=== PATIENT | male | born 1985 | race Caucasian/White ===

== ENCOUNTER 2017-09-09 12:24 | Emergency (ER) | payer MEDICAID, OTHER ==
[~2017-09-09] VITALS: Ht 182.9 cm; Wt 97.5 kg
--- OUTSIDE RECORDS SUMMARY | 2017-09-09 12:31 | XMS REPORT ---
Author Author RACHELLE COOMBS Organization [employer] Address Unknown Phone Unavailable Care Team Providers Care Etl Bi Developer Name Role Phone RACHELLE COOMBS CP Unavailable Allergies No Known Allergies Problems Problem Type Condition Code Onset Dates Condition Status Problem Epistaxis 784.7 Active Problem Need for prophylactic vaccination and inoculation, Influenza V04.81 Active Problem Allergic rhinitis, cause unspecified 477.9 Active Problem Acute upper respiratory infections of unspecified site 465.9 Active Problem Screening examination for venereal disease V74.5 Active Medications Medication Code System Code Instructions Start Date End Date Status Dosage Azithromycin [facility] [id number] 500 MG Orally one time Feb 27, 2015 2 tablets Results No Known Results Summary Purpose [employer] Submission
--- OUTSIDE RECORDS SUMMARY | 2017-09-09 12:31 | XMS REPORT ---
Author Author JIMMIE BRITTON [facility] Address [address] [place] [address] Care Team Providers Care Trolley Car Operator Name Role Phone JIMMIE BRITTON Unavailable PROBLEMS Type Condition ICD9-CM Code SAZ11-DQ Code Onset Dates Condition Status SNOMED Code Problem Back pain of lumbar region with sciatica M54.40 Active 857803618 Problem Acute left-sided low back pain with left-sided sciatica M54.42 Active 307525469 Problem Other seasonal allergic rhinitis J30.2 Active 888057494 Problem Allergic rhinitis, cause unspecified 477.9 Active 04236955 ALLERGIES No Known Allergies ENCOUNTERS Encounter Location Date Diagnosis [facility] [id number] [place] [id number] Dec, Back pain of lumbar region with sciatica M54.40 [facility] [address] [id number] [place] [id number] Oct, Acute left-sided low back pain with left-sided sciatica M54.42 [facility] [address] [id number] [place] [id number] July, [facility] [address] [id number] [place] [id number] July, Other seasonal allergic rhinitis J30.2 [facility] [address] [id number] [place] [id number] Feb, [place] [id number] [facility] [address] [id number] [place] [phone] Aug, Dental examination V72.2 [facility] [address], [place] [address] Jun, [facility] [address] [address] Jun, [facility] [id number] [id number] Feb, [facility] [address], [place] [address] Feb, [facility] [id number] [place] [id number] July, [facility] [address], [place] [address] July, [facility] [id number] [place] [id number] Jun, [facility] [address] [id number] [address] Jun, [facility] [id number] [place] [id number] Dec, [facility] [address], [place] [address] Dec, [facility] [id number] [place] [phone] July, [facility] [id number] [place] [phone] July, IMMUNIZATIONS No Known Immunizations SOCIAL HISTORY Never Assessed REASON FOR VISIT Pain Damian FLORES PLAN OF CARE Activity Details Follow Up prn Reason:no improvement VITAL SIGNS Height 61 in 2016-11-16 Weight 213.0 lbs 2016-11-16 Temperature 98.8 degrees Fahrenheit 2016-11-16 Heart Rate 92 bpm 2016-11-16 Respiratory Rate 18 2016-11-16 BMI 40.24 kg/m2 2016-11-16 Blood pressure systolic 118 mmHg 2016-11-16 Blood pressure diastolic 78 mmHg 2016-11-16 MEDICATIONS Medication Instructions Dosage Frequency Start Date End Date Duration Status Gabapentin 300 MG Orally Three times a day 1 capsule 1 tab qhs x 5 d then bid x 5 d then tid 8h Oct, 30 day(s) Active Ibuprofen 800 MG Orally Three times a day 1 tablet with food or milk 8h Oct, Nov, 30 day(s) Active Medrol (Quinn) 4 MG as directed Oct, Active RESULTS No Results PROCEDURES No Known procedures INSTRUCTIONS MEDICATIONS ADMINISTERED No Known Medications MEDICAL (GENERAL) HISTORY Type Description Date Medical History seasonal allergies
--- OUTSIDE RECORDS SUMMARY | 2017-09-09 12:31 | XMS REPORT | Continuity of Care Document ---
Author Author [facility] Address Unknown Phone Unavailable Allergies There is no data. Medications There is no data. Problems Date Dx Coded Attending Type Code Diagnosis Diagnosed By 08/26/2011 JIMMIE BRITTON APRN V74.5 SCREENING EXAMINATION FOR VENEREAL DISEASE 08/26/2011 HENRIETTA MEYERS DO V74.5 SCREENING EXAMINATION FOR VENEREAL DISEASE 08/26/2011 HENRIETTA MEYERS DO V74.5 SCREENING EXAMINATION FOR VENEREAL DISEASE 08/26/2011 HENRIETTA MEYERS DO V74.5 SCREENING EXAMINATION FOR VENEREAL DISEASE 01/23/2013 JIMMIE BRITTON APRN V04.81 FLU SHOT 01/23/2013 HENRIETTA MEYERS DO V04.81 FLU SHOT 01/23/2013 HENRIETTA MEYERS DO V04.81 FLU SHOT 01/23/2013 HENRIETTA MEYERS DO V04.81 FLU SHOT 07/18/2013 HENRIETTA MEYERS DO 784.7 EPISTAXIS 07/18/2013 HENRIETTA MEYERS DO 784.7 EPISTAXIS 07/18/2013 HENRIETTA MEYERS DO 784.7 EPISTAXIS 08/14/2013 HENRIETTA MEYERS DO 477.9 RHINITIS 08/14/2013 HENRIETTA MEYERS DO 477.9 RHINITIS 03/26/2014 HENRIETTA MEYERS DO 465.9 ACUTE UPPER RESPIRATORY INFECTIONS OF UNSPECIFIED SITE Procedures Code [place] [address] INFLUENZA A & B (IN-HOUSE) 03/26/2014 77296 STREP A (IN-HOUSE) 03/26/2014 Results There is no data. Encounters ACCT No. Visit Date/Time Discharge Status Pt. Type Provider Facility Loc./Unit Complaint [id number] 03/26/2014 14:35:00 03/26/2014 23:59:59 CLS Outpatient HENRIETTA MEYERS DO [id number] 08/14/2013 14:16:00 08/14/2013 23:59:59 CLS Outpatient HENRIETTA MEYERS DO [id number] 07/18/2013 10:47:00 07/18/2013 23:59:59 CLS Outpatient HENRIETTA MEYERS DO [id number] 01/23/2013 18:47:00 01/23/2013 23:59:59 CLS Outpatient JIMMIE BRITTON APRN [id number] 01/22/2017 15:20:00 01/22/2017 23:59:59 CLS Outpatient DIANE COVINGTON [facility]
[2017-09-09] MEDS ORDERED: TETANUS,DIPTH,PERTUSS P/F (BOOSTRIX) 0.5 ML VIAL IM ONE (12:45)
--- NOTE | 2017-09-09 13:11 | ED Upper Extremity ---
General Chief Complaint: Upper Extremity Stated Complaint: LEFT FINGER LAC Nursing Triage Note: STATES HE BROUGHT GIRLFRIEND TO THE ER AND WHILE IN CAR HE CUT HIS LEFT INDEX FINGER WHILE SHARPENING HIS KNIFE IN THE PARKING LOT. Nursing Sepsis Screen: No Definite Risk History of Present Illness Date Seen by Provider: Sep 09, 2017 Time Seen by Provider: 12:50 Initial Comments 31 year old male reports self inflicted, accidental laceration to his left index finger. He was using his pocket knife for something else and cut his finger. He is unaware of his last tetanus status, we will give him a tetanus booster. Onset: just prior to arrival Pain/Injury Location: left 2nd finger Method of Injury: incised Allergies and Home Medications Allergies Coded Allergies: No Known Drug Allergies (Unverified , 09/09/17) Patient Home Medication List Home Medication List Reviewed: Yes Constitutional: no symptoms reported Skin: see HPI, other (superficial abrasion) All Other Systems Reviewed Negative Unless Noted: Yes Past Dknbnpn-Pytopg-Fvtlyg Hx Past Med/Social Hx: Reviewed Nursing Past Med/Soc Hx Patient Social History Alcohol Use: Rarely Uses Recreational Drug Use: No Smoking Status: Never a Smoker Recent Foreign Travel: No Contact w/Someone Who Travel: No Recent Infectious Disease Expo: No Recent Hopitalizations: No Immunizations Up To Date Tetanus Booster (TDap): Unknown Past Medical History Surgeries: No Respiratory: No Cardiac: No Neurological: No Genitourinary: No Gastrointestinal: No Musculoskeletal: No Endocrine: No HEENT: No Cancer: No Psychosocial: No Integumentary: No Physical Exam Vital Signs Vital Signs - First Documented 09/09/17 12:30 Temp 98.0 Pulse 78 Resp 15 B/P (MAP) 164/97 (119) Pulse Ox 97 O2 Delivery Room Air Capillary Refill : Less Than 3 Seconds General Appearance: WD/WN, no apparent distress Cardiovascular: normal peripheral pulses, regular rate, rhythm Respiratory: chest non-tender, lungs clear, normal breath sounds Hand: normal ROM, Left, abrasions (distal phalanx volar side left index finger , no active bleeding, wound well approximated and superficial.) Neurologic/Psychiatric: no motor/sensory deficits, alert, normal mood/affect, oriented x 3 Progress/Results/Core Measures Results/Orders Medications Given in ED Current Medications Medications Dose Ordered Sig/Sarah Route Start Time Stop Time Status Last Admin Dose Admin Diphtheria/ Tetanus/Acell Pertussis 0.5 ml ONCE ONCE IM 09/09/17 12:45 09/09/17 12:46 DC 09/09/17 13:34 0.5 ML Vital Signs/I&O 09/09/17 09/09/17 12:30 13:35 Temp 98.0 98.0 Pulse 78 78 Resp 15 15 B/P (MAP) 164/97 (119) 164/97 (119) Pulse Ox 97 97 O2 Delivery Room Air Blood Pressure Mean: 119 Progress Progress Note : Time: 12:50 Progress Note Initial evaluation completed, wound cleansed and triple antibiotic ointment with sterile nonadherent dressing applied. Discharge instructions and return precautions reviewed with the patient. Departure Impression Primary Impression: Abrasion of left index finger, initial encounter Disposition: 01 HOME, SELF-CARE Condition: Improved Departure-Patient Inst. Decision time for Depature: 13:10 Referrals: NO,LOCAL PHYSICIAN (PCP/Family) Primary Care Physician Patient Instructions: Wound Care (DC) Add. Discharge Instructions: Keep wound clean and dry for the next 24 hours. You may shower as normal after that, do not immerse left index finger in a sink of water, bathtub, swimming pool, hot tub, jose or pond. Keep covered with Band-Aid and apply triple antibiotic ointment 3 times daily. Follow-up with your primary care provider if symptoms are not improving or worsen. Return to emergency department for new, urgent health care problems. All discharge instructions reviewed with patient and/or family. Voiced understanding. ROLANDO HAJI Sep 09, 2017 13:11
[2017-09-09 13:35] VITALS: BP 164/97
== END 2017-09-09 13:35 | disposition home or self-care (01) ==
LOC: ER 12:28
DX: S60.411A Abrasion of left index finger, initial encounter (principal); W26.0XXA Contact with knife, initial encounter; Y92.481 Parking lot as the place of occurrence of the external cause
CPT/HCPCS: 90471; 90715; 99284

== ENCOUNTER 2017-12-09 12:12 | Emergency (ER) | payer MEDICAID ==
[~2017-12-09] VITALS: Ht 182.9 cm; Wt 102.1 kg
[2017-12-09] MEDS ORDERED: FEXO1TAB40 PO (13:34)
[2017-12-09] MEDS ORDERED: AMOX-358 PO (13:34)
--- NOTE | 2017-12-09 13:34 | ED EENT ---
History of Present Illness General Chief Complaint: Cough/Cold/Flu Symptoms Stated Complaint: SINUS INFECTION Nursing Triage Note: Pt reports cough, congestion, body aches, diarrhea, sore throat, since last week, but worse since yesterday. Pt was seen by his provider last week and prescribed zyrtec and flonase w/ no relief. 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 Source: patient Exam Limitations: no limitations History of Present Illness Date Seen by Provider: Dec 09, 2017 Time Seen by Provider: 13:31 Initial Comments To ER with 2 week history of nasal congestion, rhinorrhea, watery eyes, sneezing , diffuse body aches, nonproductive cough. He was seen by primary care last week and given Zyrtec Flonase and oral steroids. He did not finish the steroids. He reports chills and fevers at home. Timing/Duration: abrupt Severity: moderate Location: nose, throat Associated Symptoms: cough, facial pain/swelling, fever, nasal congestion/ drainage, sore throat Allergies and Home Medications Allergies Coded Allergies: No Known Drug Allergies (Unverified , 09/09/17) Home Medications Amoxicillin/Potassium Clav 1 Each Tablet, 1 EACH PO BID Prescribed by: MANUELA GARCIA on 12/09/17 1334 Fexofenadine/Pseudoephedrine 1 Each Tab.er.12h, 1 EACH PO BID Prescribed by: MANUELA GARCIA on 12/09/17 1334 Patient Home Medication List Home Medication List Reviewed: Yes Review of Systems Review of Systems Constitutional: see HPI Eyes: See HPI Ears: No Symptoms Reported Nose: see HPI, congestion, clear discharge Mouth: no symptoms reported Throat: no symptoms reported Respiratory: no symptoms reported Cardiovascular: no symptoms reported Musculoskeletal: no symptoms reported Past Zabettq-Clehip-Vxftkk Hx Patient Social History Alcohol Use: Denies Use Recreational Drug Use: No Smoking Status: Never a Smoker Recent Foreign Travel: No Contact w/Someone Who Travel: No Recent Infectious Disease Expo: No Recent Hopitalizations: No Immunizations Up To Date Tetanus Booster (TDap): Unknown Seasonal Allergies Seasonal Allergies: No Past Medical History Surgeries: No Respiratory: No Cardiac: No Neurological: No Genitourinary: No Gastrointestinal: No Musculoskeletal: No Endocrine: No HEENT: No Cancer: No Psychosocial: No Integumentary: No Blood Disorders: No Physical Exam Vital Signs Vital Signs - First Documented 12/09/17 12:40 Temp 99.0 Pulse 81 Resp 18 B/P (MAP) 120/80 (93) Height, Weight, BMI Height: 6'0" Weight: 225lbs. oz. 102.204862uv; BMI Method:Stated General Appearance: WD/WN, no apparent distress Eyes: bilateral eye normal inspection, bilateral eye PERRL, bilateral eye EOMI Ears: bilateral ear auricle normal, bilateral ear canal normal, bilateral ear TM normal Mouth/Throat: normal mouth inspection, pharynx normal; No tonsillar swelling, No uvula swelling; other (maxillary sinus tenderness to palpation) Neck: non-tender, full range of motion Cardiovascular: regular rate, rhythm, no murmur Respiratory: lungs clear, normal breath sounds, no respiratory distress, no accessory muscle use; No crackles, No rales, No rhonchi, No stridor Gastrointestinal: normal bowel sounds, non tender, soft Neurologic/Psychiatric: alert, normal mood/affect, oriented x 3 Skin: normal color, warm/dry Progress/Results/Core Measures Results/Orders Vital Signs/I&O 12/09/17 12:40 Temp 99.0 Pulse 81 Resp 18 B/P (MAP) 120/80 (93) Blood Pressure Mean: 93 Departure Impression Primary Impression: Sinusitis Disposition: 01 HOME, SELF-CARE Condition: Stable Departure-Patient Inst. Decision time for Depature: 13:33 Referrals: NO,LOCAL PHYSICIAN (PCP/Family) Primary Care Physician Patient Instructions: Sinusitis in Adults Add. Discharge Instructions: 1. Return to ER for any concerns 2. Steroids should be finished, start the antibiotics today and the antihistamine/decongestant. All discharge instructions reviewed with patient and /or family. Voiced understanding. Scripts Fexofenadine/Pseudoephedrine (Mila-D 12 Hour Tablet) 1 Each Tab.er.12h 1 EACH PO BID, #20 TAB Prov: MANUELA GARCIA APRN 12/09/17 Amoxicillin/Potassium Clav (Augmentin 875-125 Tablet) 1 Each Tablet 1 EACH PO BID, #14 TAB Prov: MANUELA GARCIA APRN 12/09/17 Work/School Note: Work Release Form Date Seen in the Emergency Department: Dec 09, 2017 Return to Work: Dec 11, 2017 MANUELA GARCIA APRN Dec 09, 2017 13:34
[2017-12-09 13:54] VITALS: BP 120/80
--- OUTSIDE RECORDS SUMMARY | 2017-12-09 13:59 | XMS REPORT ---
Author Author JIMMIE BRITTON [facility] Address [address] [place] [address] Care Team Providers Care Electrolytic De Scaler Name Role Phone JIMMIE BRITTON Unavailable PROBLEMS Type Condition ICD9-CM Code ORG29-TQ Code Onset Dates Condition Status SNOMED Code Problem Rhinitis, unspecified type J31.0 Active 17309111 Problem Back pain of lumbar region with sciatica M54.40 Active 855679254 Problem Acute left-sided low back pain with left-sided sciatica M54.42 Active 158648251 ALLERGIES No Information ENCOUNTERS Encounter Location Date Diagnosis [facility] [id number] [place] [id number] Nov, [address] [id number] Oct, Rhinitis, unspecified type J31.0 and BMI 40.0-44.9, adult Z68.41 [facility] [address] [id number] Sep, [facility] [id number] [place] [phone] Dec, Back pain of lumbar region with sciatica M54.40 [facility] [id number] [place] [id number] Oct, Acute left-sided low back pain with left-sided sciatica M54.42 [facility] [id number] [place] [id number] July, [facility] [id number] [place] [id number] July, Other seasonal allergic rhinitis J30.2 [facility] [id number] [place] [id number] Feb, [place] [id number] [place] [phone] Aug, Dental examination V72.2 [facility] [address], [place] [address] Jun, [facility] [address], [place] [address] Jun, [facility] [address] [id number] Feb, [facility] [address] [place] [address] Feb, [facility] [id number] [place] [id number] July, [facility] [address] [place] [address] July, [facility] [address] [phone] Jun, [facility] [address], [place] [address] Jun, [facility] [address] [id number] Dec, [facility] [address], [place] [address] Dec, [place] [id number] [phone] July, [address] [phone] July, IMMUNIZATIONS No Known Immunizations SOCIAL HISTORY Never Assessed REASON FOR VISIT medication PLAN OF CARE VITAL SIGNS MEDICATIONS Medication Instructions Dosage Frequency Start Date End Date Duration Status Albenza 200 mg Orally Twice a day, repeat in 2 weeks 2 tablets Sep, Sep, 0 days Active RESULTS No Results PROCEDURES No Known procedures INSTRUCTIONS MEDICATIONS ADMINISTERED No Known Medications MEDICAL (GENERAL) HISTORY Type Description Date Medical History seasonal allergies
--- OUTSIDE RECORDS SUMMARY | 2017-12-09 13:59 | XMS REPORT | Continuity of Care Document ---
Author Author [facility] of [facility] Address Unknown Phone Unavailable Allergies Active Description Code Type Severity Reaction Onset Reported/Identified Relationship to Patient Clinical Status Yes No Known Drug Allergies [id number] Drug Allergy Unknown N/A 09/09/2017 Medications There is no data. Problems Date Dx Coded Attending Type Code Diagnosis Diagnosed By 08/26/2011 JIMMIE BRITTON APRN V74.5 SCREENING EXAMINATION FOR VENEREAL DISEASE 08/26/2011 HENRIETTA MEYERS DO V74.5 SCREENING EXAMINATION FOR VENEREAL DISEASE 08/26/2011 HENRIETTA MEYERS DO V74.5 SCREENING EXAMINATION FOR VENEREAL DISEASE 08/26/2011 HENRIETTA MEYERS DO V74.5 SCREENING EXAMINATION FOR VENEREAL DISEASE 01/23/2013 JIMMIE BRITTON APRN V04.81 FLU SHOT 01/23/2013 MEYERS HENRIETTA ROBLES V04.81 FLU SHOT 01/23/2013 MEYERS HENRIETTA ROBLES K V04.81 FLU SHOT 01/23/2013 MEYERS CHARITY ROBLESA K V04.81 FLU SHOT 07/18/2013 HENRIETTA MEYERS DO K 784.7 EPISTAXIS 07/18/2013 MEYERS HENRIETTA ROBLES K 784.7 EPISTAXIS 07/18/2013 MEYERS CHARITY ROBLESA K 784.7 EPISTAXIS 08/14/2013 HENRIETTA MEYERS DO K 477.9 RHINITIS 08/14/2013 MEYERS HENRIETTA ROBLES K 477.9 RHINITIS 03/26/2014 MEYERS CHARITY ROBLESA K 465.9 ACUTE UPPER RESPIRATORY INFECTIONS OF UNSPECIFIED SITE 09/09/2017 ROLANDO HAJI Ot S60.411A ABRASION OF LEFT INDEX FINGER, INITIAL E 09/09/2017 ROLANDO HAJI Ot W26.0XXA CONTACT WITH KNIFE, INITIAL ENCOUNTER 09/09/2017 ROLANDO HAJI Ot Y92.[address] OF OCCURRENCE O 09/13/2017 ROLANDO HAJI Ot S60.411A ABRASION OF LEFT INDEX FINGER, INITIAL E 09/13/2017 ROLANDO HAJI Ot W26.0XXA CONTACT WITH KNIFE, INITIAL ENCOUNTER 09/13/2017 ROLANDO HAJI Ot Y92.[address] OF OCCURRENCE O Procedures Code [place] [address] INFLUENZA A & B (IN-HOUSE) 03/26/2014 40818 STREP A (IN-HOUSE) 03/26/2014 Results There is no data. Encounters ACCT No. Visit Date/Time Discharge Status Pt. Type Provider Facility Loc./Unit Complaint [id number] 03/26/2014 14:35:00 03/26/2014 23:59:59 CLS Outpatient HENRIETTA MEYERS DO [id number] 08/14/2013 14:16:00 08/14/2013 23:59:59 CLS Outpatient HENRIETTA MEYERS DO [id number] 07/18/2013 10:47:00 07/18/2013 23:59:59 CLS Outpatient HENRIETTA MEYERS DO [id number] 01/23/2013 18:47:00 01/23/2013 23:59:59 CLS Outpatient JIMMIE BRITTON APRN [id number] 01/22/2017 15:20:00 01/22/2017 23:59:59 CLS Outpatient NADYA SHIRLEYDIANE ROME [id number] 09/09/2017 12:28:00 09/09/2017 13:35:00 DIS Emergency ROLANDO HJAIP [facility] ER LEFT FINGER LAC [id number] 12/09/2017 12:13:00 ACT Emergency MANUELA GARCIA APRN [facility] ER SINUS INFECTION
== END 2017-12-09 13:54 | disposition home or self-care (01) ==
LOC: EDUNIT# 12:12 → ER 12:13
DX: J32.9 Chronic sinusitis, unspecified (principal)
CPT/HCPCS: 99282

== ENCOUNTER 2018-01-17 11:39 | Emergency (ER) | payer MEDICAID ==
[~2018-01-17] VITALS: Ht 182.9 cm; Wt 102.1 kg
[~2018-01-17 11:39] MED LIST: AMOX-358 PO; FEXO1TAB40 PO
--- OUTSIDE RECORDS SUMMARY | 2018-01-17 11:49 | XMS REPORT ---
Author Author SLAVA WILBURN [facility] Address [address] [place] [address] Care Team Providers Care Spice Cleaner Name Role Phone SLAVA WILBURN Unavailable PROBLEMS Type Condition ICD9-CM Code EHA44-CX Code Onset Dates Condition Status SNOMED Code Problem Rhinitis, unspecified type J31.0 Active 15403000 Problem Back pain of lumbar region with sciatica M54.40 Active 120212538 Problem Acute left-sided low back pain with left-sided sciatica M54.42 Active 577878631 ALLERGIES No Known Allergies ENCOUNTERS Encounter Location Date Diagnosis [facility] [id number] [place] [address] [id number] Nov, [facility] [id number] [place] [address] [id number] Oct, Rhinitis, unspecified type J31.0 and BMI 40.0-44.9, adult Z68.41 [facility] [id number] [place] [address] [id number] Sep, [facility] [id number] [place] [address] [id number] Dec, Back pain of lumbar region with sciatica M54.40 [facility] [id number] [place] [address] [id number] Oct, Acute left-sided low back pain with left-sided sciatica M54.42 [facility] [id number] [place] [address] [id number] July, [facility] [id number] [place] [address] [id number] July, Other seasonal allergic rhinitis J30.2 [facility] [id number] [place] [address] [id number] Feb, [address] [phone] Aug, Dental examination V72.2 [facility] [address] [address] Jun, [facility] [address], [place] [address] Jun, [facility] [id number] [phone] Feb, [facility] [id number] [place] [address] Feb, [facility] [address] [place] [address] [id number] July, [facility] [id number] [place] [address] July, [facility] [id number] [place] [address] [id number] Jun, [facility] [address] [place] [address] Jun, [facility] [address] [phone] Dec, [facility] [address], [place] [address] Dec, [facility] [address] [phone] July, [address] [phone] July, IMMUNIZATIONS No Known Immunizations SOCIAL HISTORY Never Assessed REASON FOR VISIT Possible Sinus Infection-DIDIER bui, coughing up yellow phlegm, having really bad congestion, ichy, watery eyes. been going on about a week an half PLAN OF CARE Activity Details Follow Up prn Reason: VITAL SIGNS Height 61 in 2017-11-23 Weight 219.4 lbs 2017-11-23 Temperature 97.2 degrees Fahrenheit 2017-11-23 Heart Rate 73 bpm 2017-11-23 Respiratory Rate 18 2017-11-23 BMI 41.45 kg/m2 2017-11-23 Blood pressure systolic 122 mmHg 2017-11-23 Blood pressure diastolic 82 mmHg 2017-11-23 MEDICATIONS Medication Instructions Dosage Frequency Start Date End Date Duration Status Zyrtec Allergy 10 mg Orally Once a day 1 tablet 24h Oct, Dec, 30 day(s) Active Flonase Allergy Relief 50 MCG/ACT Nasally Once a day 1 spray in each nostril 24h Oct, 30 day(s) Active PredniSONE 20 mg Orally Once a day 1 tablet 24h Oct, Nov, 05 days Active RESULTS No Results PROCEDURES No Known procedures INSTRUCTIONS MEDICATIONS ADMINISTERED No Known Medications MEDICAL (GENERAL) HISTORY Type Description Date Medical History seasonal allergies
--- OUTSIDE RECORDS SUMMARY | 2018-01-17 11:49 | XMS REPORT | Continuity of Care Document ---
Author Author [facility] Address Unknown Phone Unavailable Allergies Active Description Code Type Severity Reaction Onset Reported/Identified Relationship to Patient Clinical Status Yes No Known Drug Allergies [id number] Drug Allergy Unknown N/A 09/09/2017 Medications There [...] INDEX FINGER, INITIAL E 09/13/2017 ROLANDO HAJI DAVE Ot W26.0XXA CONTACT WITH KNIFE, INITIAL ENCOUNTER 09/13/2017 ROLANDO HAJI DAVE Ot Y92.[address] OF OCCURRENCE O 12/09/2017 MANUELA GARCIA APRN Ot J32.9 CHRONIC SINUSITIS, UNSPECIFIED 12/09/2017 MANUELA GARCIA APRN Ot R09.81 NASAL CONGESTION 12/13/2017 MANUELA GARCIA APRN Ot J32.9 CHRONIC SINUSITIS, UNSPECIFIED 12/13/2017 MANUELA GARCIA APRN Ot R09.81 NASAL CONGESTION Procedures Code Description [place] [address] INFLUENZA A & B (IN-HOUSE) 03/26/2014 86652 STREP A (IN-HOUSE) 03/26/2014 Results There is no data. Encounters ACCT No. Visit Date/Time Discharge Status Pt. Type Provider Facility Loc./Unit Complaint [id number] 03/26/2014 14:35:00 03/26/2014 23:59:59 CLS Outpatient HENRIETTA MEYERS DO [id number] 08/14/2013 14:16:00 08/14/2013 23:59:59 CLS Outpatient HENRIETTA MEYERS DO [id number] 07/18/2013 10:47:00 07/18/2013 23:59:59 CLS Outpatient HENRIETTA MEYERS DO [id number] 01/23/2013 18:47:00 01/23/2013 23:59:59 CLS Outpatient JIMMIE BRITTON APRN [id number] 01/22/2017 15:20:00 01/22/2017 23:59:59 CLS Outpatient DIANE COVINGTON LACMónica LUCERNE [id number] 12/09/2017 12:13:00 12/09/2017 13:54:00 DIS Emergency MANUELA GARCIA APRN [facility] SINUS INFECTION [id number] 09/09/2017 12:28:00 09/09/2017 13:35:00 DIS Emergency RAISSAROLANDO DAVE [facility] LEFT FINGER LAC
--- OUTSIDE RECORDS SUMMARY | 2018-01-17 11:49 | XMS REPORT ---
Author Author JIMMIE BRITTON [facility] Address [address] [place] [address] Care Team Providers Care Military Analyst Name Role Phone JIMMIE BRITTON Unavailable PROBLEMS Type Condition ICD9-CM Code MRE93-IK Code Onset Dates Condition Status SNOMED Code Problem Rhinitis, unspecified type J31.0 Active 67615317 Problem Back pain of lumbar region with sciatica M54.40 Active 318966113 Problem Acute left-sided low back pain with left-sided sciatica M54.42 Active 830949599 ALLERGIES No Information ENCOUNTERS Encounter Location Date Diagnosis [facility] [id number] [place] [id number] Nov, [address] [id number] Oct, Rhinitis, unspecified type J31.0 and BMI 40.0-44.9, adult Z68.41 [facility] [address] [id number] Sep, [facility] [id number] [place] [address] [id number] Dec, Back pain of lumbar region with sciatica M54.40 [facility] [id number] [place] [address] [id number] Oct, Acute left-sided low back pain with left-sided sciatica M54.42 [facility] [id number] [place] [address] [id number] July, [facility] [id number] [place] [address] [id number] July, Other seasonal allergic rhinitis J30.2 [facility] [id number] [place] [address] [id number] Feb, [id number] [place] [address] [id number] Aug, Dental examination V72.2 [facility] [address] [address] Jun, [facility] [address] [address] Jun, [facility] [address] [id number] Feb, [facility] [address] [address] Feb, [facility] [address] [place] [address] [id number] July, [facility] [address] [address] July, [facility] [address] [id number] Jun, [facility] [address] [address] Jun, [facility] [address] [id number] Dec, [facility] [address] [address] Dec, [facility] [id number] [phone] July, [address] [phone] July, IMMUNIZATIONS No Known Immunizations SOCIAL HISTORY Never Assessed REASON FOR VISIT head lice med PLAN OF CARE VITAL SIGNS MEDICATIONS Medication Instructions Dosage Frequency Start Date End Date Duration Status Sklice 0.5 % Externally one time as directed Nov, Nov, 0 days Active RESULTS No Results PROCEDURES No Known procedures INSTRUCTIONS MEDICATIONS ADMINISTERED No Known Medications MEDICAL (GENERAL) HISTORY Type Description Date Medical History seasonal allergies
[2018-01-17] MEDS ORDERED: TRAM-42 PO (11:57)
[2018-01-17] MEDS ORDERED: AMOX500C2 PO (11:57)
[2018-01-17] MEDS ORDERED: NAPR-1071 PO (11:57)
--- NOTE | 2018-01-17 11:57 | ED EENT ---
History of Present Illness General Stated Complaint: TOOTH PAIN Source: patient Exam Limitations: no limitations History of Present Illness Date Seen by Provider: Jan 17, 2018 Time Seen by Provider: 11:53 Initial Comments He is to ER with worsening left upper dental pain for the past week. No swelling. He has a dental appointment in February. Timing/Duration: gradual Severity: moderate Location: dental Prearrival Treatment: no prearrival treatment Associated Symptoms: tooth pain Allergies and Home Medications Allergies Coded Allergies: No Known Drug Allergies (Unverified , 09/09/17) Home Medications Amoxicillin/Potassium Clav 1 Each Tablet, 1 EACH PO BID Prescribed by: MANUELA GARCIA on 12/09/17 1334 Fexofenadine/Pseudoephedrine 1 Each Tab.er.12h, 1 EACH PO BID Prescribed by: MANUELA GARCIA on 12/09/17 1334 Patient Home Medication List Home Medication List Reviewed: Yes Review of Systems Review of Systems Constitutional: see HPI; No chills, No fever Eyes: No Symptoms Reported Ears: No Symptoms Reported Nose: no symptoms reported Mouth: see HPI, pain Throat: no symptoms reported Respiratory: no symptoms reported Musculoskeletal: no symptoms reported Past Hordsut-Uxtojt-Rdfpip Hx Patient Social History Recent Hopitalizations: No Immunizations Up To Date Tetanus Booster (TDap): Unknown Seasonal Allergies Seasonal Allergies: No Past Medical History Surgeries: No Respiratory: No Cardiac: No Neurological: No Genitourinary: No Gastrointestinal: No Musculoskeletal: No Endocrine: No HEENT: No Cancer: No Psychosocial: No Integumentary: No Blood Disorders: No Physical Exam Height, Weight, BMI Height: 6'0" Weight: 225lbs. oz. 102.456814fj; BMI Method:Stated General Appearance: WD/WN, no apparent distress Eyes: bilateral eye normal inspection, bilateral eye PERRL, bilateral eye EOMI Ears: bilateral ear auricle normal, bilateral ear canal normal, bilateral ear TM normal Mouth/Throat: No mandibular swelling, No maxillary swelling, No tonsillar swelling, No trismus, No uvula swelling; other (a few missing teeth, the affected tooth is carious. There is no fluctuant palpable dental abscess.) Neck: non-tender, full range of motion; No lymphadenopathy (R), No lymphadenopathy (L) Respiratory: no respiratory distress, no accessory muscle use Neurologic/Psychiatric: alert, normal mood/affect, oriented x 3 Skin: normal color, warm/dry Departure Impression Primary Impression: Dental caries Additional Impression: Pain, dental Disposition: HOME, SELF-CARE Condition: Stable Departure-Patient Inst. Decision time for Depature: 11:55 Referrals: NO,LOCAL PHYSICIAN (PCP/Family) Primary Care Physician Patient Instructions: Dental Pain (DC) Add. Discharge Instructions: 1. Return to ER for any concerns 2. Antibiotics and pain medication as directed. Scripts Tramadol HCl (Ultram) 50 Mg Tablet 50 MG PO TID PRN for PAIN-SEVERE, #10 TAB Do not fill unless amoxicillin is also filled Prov: MANUELA GARCIA APRN 01/17/18 Naproxen (Naprosyn) 500 Mg Tablet 500 MG PO BID, #30 TAB Prov: MANUELA GARCIA APRN 01/17/18 Amoxicillin (Amoxicillin) 500 Mg Capsule 500 MG PO TID, #21 CAP Prov: MANUELA GARCIA APRN 01/17/18 Work/School Note: Work Release Form Date Seen in the Emergency Department: Jan 17, 2018 Return to Work: Jan 18, 2018 Images Mouth/Nose 1 - Caries, Tenderness MANUELA GARCIA APRN Jan 17, 2018 11:57
[2018-01-17 12:03] VITALS: BP 124/77
== END 2018-01-17 12:01 | disposition home or self-care (01) ==
LOC: ER 11:39 → EDUNIT# 11:39 → ER 12:01
DX: K02.9 Dental caries, unspecified (principal)
CPT/HCPCS: 99282